=== PATIENT | female | born 1965 | race Caucasian/White ===

== ENCOUNTER 2019-09-27 21:18 | Emergency (ER) | payer MEDICAID ==
[~2019-09-27] VITALS: Ht 167.6 cm; Wt 77.3 kg
[~2019-09-27 21:18] MED LIST: CHLO25CA10 PO; METO25TA6 PO
[2019-09-27] MEDS ORDERED: normal saline 1000ML IV soln IVB ONE (22:35)
[2019-09-27 22:43] LABS: BASOPHILS % (AUTO) 1.3 % (0-1); EOSINOPHILS # (AUTO) 0.1 X10'3 (0-0.9); EOSINOPHILS % (AUTO) 2.2 % (0-6); HEMATOCRIT 38.2 % (35.0-45.0); HEMOGLOBIN 12.8 g/dl (12.0-16.0); LYMPHOCYTES # (AUTO) 1.8 X10'3 (1.1-4.8); LYMPHOCYTES % (AUTO) 46.9 % (21-51); MEAN CORPUSCULAR HEMOGLOBIN 35.2 PG (27.0-31.0); MEAN CORPUSCULAR HGB CONC 33.6 g/dL (33.0-36.5); MEAN CORPUSCULAR VOLUME 104.9 FL (78-98); MEAN PLATELET VOLUME 8.5 FL (7.4-10.4); MONOCYTES # (AUTO) 0.4 X10'3 (0-0.9); MONOCYTES % (AUTO) 11.9 % (2-12); NEUTROPHILS # (AUTO) 1.4 X10'3 (1.8-7.7); NEUTROPHILS % (AUTO) 37.7 % (42-75); PLATELET COUNT 292 X10'3 (140-440); RED BLOOD COUNT 3.64 X10'6 (4.20-5.60); RED CELL DISTRIBUTION WIDTH 13.7 % (11.5-14.5); WHITE BLOOD COUNT 3.8 X10'3 (4.5-11.0)
[2019-09-27 23:00] LABS: ALANINE AMINOTRANSFERASE 47 U/L (12-78); ALBUMIN 3.5 G/DL (3.4-5.0); ALBUMIN/GLOBULIN RATIO 1.1 (1.1-1.5); ALKALINE PHOSPHATASE 95 IU/L (46-116); ANION GAP 7 (8-16); ASPARTATE AMINO TRANSFERASE 111 U/L (10-37); BILIRUBIN,TOTAL 1.1 MG/DL (0.1-1.0); BLOOD UREA NITROGEN 14 MG/DL (7-18); BUN/CREATININE RATIO 13.9 (6.6-38.0); CALCIUM 8.7 MG/DL (8.5-10.1); CHLORIDE 106 MMOL/L (99-107); CREATININE 1.01 MG/DL (0.40-0.90); ETHANOL 0.253 GM/DL (0.0-0.010); GLUCOSE 95 MG/DL (70-104); LIPASE 326 U/L (73-393); POTASSIUM 4.3 MMOL/L (3.5-5.1); SODIUM 141 MMOL/L (135-145); TOTAL PROTEIN 6.6 G/DL (6.4-8.2); eGFR 57 ML/MIN
[2019-09-27] MEDS ORDERED: ESTR1TAB28 PO (23:10)
[2019-09-27] MEDS ORDERED: PANT40TA4 PO (23:10)
[2019-09-27] MEDS ORDERED: BUPR100T16 PO (23:10)
[2019-09-27] MEDS ORDERED: LOVA20TA2 PO (23:10)
[2019-09-27] MEDS ORDERED: GABA-532 PO (23:10)
[2019-09-27] MEDS ORDERED: LISI-600 PO (23:10)
[2019-09-27 23:18] LABS: URINE HCG NEGATIVE (NEG)
[2019-09-27 23:28] LABS: CLARITY,URINE CLEAR (Clear); COLOR,URINE YELLOW (Yellow); GLUCOSE, URINE NEGATIVE (Neg); KETONES,URINE NEGATIVE (Neg); LEUKOCYTE ESTERASE ,URINE NEGATIVE (Neg); NITRITES, URINE NEGATIVE (Neg); OCCULT BLOOD,URINE TRACE-INTACT (Neg); PROTEIN,URINE NEGATIVE (Neg); UROBILINOGEN,URINE 0.2 E.U/dL (0.2-1.0)
[2019-09-27 23:34] LABS: UA COLLECTION TYPE CLN CATCH MIDSTREAM
[2019-09-27 23:35] LABS: URINE AMPHETAMINE SCREEN NEGATIVE (Neg); URINE BARBITUATE SCREEN NEGATIVE (Neg); URINE BENZODIAZEPINES SCREEN NEGATIVE (Neg); URINE CANNABINOID SCREEN NEGATIVE (Neg); URINE COCAINE SCREEN NEGATIVE (Neg); URINE METHADONE SCREEN NEGATIVE (Neg); URINE OPIATE SCREEN NEGATIVE (Neg); URINE PHENCYCLIDINE SCREEN NEGATIVE (Neg)
[2019-09-27 23:37] LABS: BACTERIA,URINE 2+ /HPF (Neg); MUCUS STRANDS NONE SEEN /LPF (Neg); RBC,URINE 0-2 /HPF (0-2); SQUAMOUS EPITHELIAL CELL,UR MODERATE /LPF (FEW); WBC,URINE NONE SEEN /HPF (0-4)
[2019-09-28 00:06] VITALS: BP 128/49
--- NOTE | 2019-09-28 00:11 | NUR ---
Gait test performed with pt ambulating successfully without assistance and without signs of instability.
[2019-09-28 12:10] LABS: OCCULT BLOOD STOOL POSITIVE (Neg)
== END 2019-09-28 00:08 | disposition home or self-care (01) ==
LOC: ER 21:18
DX: K64.4 Residual hemorrhoidal skin tags (principal); F10.129 Alcohol abuse with intoxication, unspecified; R42 Dizziness and giddiness; I10 Essential (primary) hypertension; F41.9 Anxiety disorder, unspecified; F32.9 Major depressive disorder, single episode, unspecified; F12.90 Cannabis use, unspecified, uncomplicated; F15.90 Other stimulant use, unspecified, uncomplicated; Z90.710 Acquired absence of both cervix and uterus; Z98.890 Other specified postprocedural states; Z79.899 Other long term (current) drug therapy; Y90.9 Presence of alcohol in blood, level not specified
CPT/HCPCS: 36415; 74176; 80053; 80305; 80320; 81001; 81025; 82272; 83690; 85025; 86885; 86900; 86901; 96360; 99284; J7030

== ENCOUNTER 2020-04-11 08:20 | Emergency (ER) | payer MEDICAID ==
[~2020-04-11] VITALS: Ht 167.6 cm; Wt 74.5 kg
[~2020-04-11 08:20] MED LIST changes: +BUPR100T16 PO; -CHLO25CA10 PO; +ESTR1TAB28 PO; +GABA-532 PO; +LISI-600 PO; +LOVA20TA2 PO; -METO25TA6 PO; +PANT40TA54 PO
[2020-04-11] MEDS ORDERED: ondansetron/PF 4mg/2ml inj IV ONE (08:45)
[2020-04-11] MEDS ORDERED: normal saline 1000ML IV soln IVB ONE (08:45)
[2020-04-11] MEDS ORDERED: famotidine/PF 10 mg/ml inj IV ONE (08:50)
[2020-04-11] MEDS ORDERED: pantoprazole 40 MG vial IV ONE (08:50)
[2020-04-11 09:25] LABS: BASOPHILS # (AUTO) 0.1 X10'3 (0-0.2); BASOPHILS % (AUTO) 0.9 % (0-1); EOSINOPHILS # (AUTO) 0.2 X10'3 (0-0.9); EOSINOPHILS % (AUTO) 2.3 % (0-6); HEMATOCRIT 39.5 % (35.0-45.0); HEMOGLOBIN 13.2 g/dl (12.0-16.0); LYMPHOCYTES # (AUTO) 1.3 X10'3 (1.1-4.8); LYMPHOCYTES % (AUTO) 17.3 % (21-51); MEAN CORPUSCULAR HEMOGLOBIN 31.4 PG (27.0-31.0); MEAN CORPUSCULAR HGB CONC 33.4 g/dL (33.0-36.5); MEAN PLATELET VOLUME 10.4 FL (7.4-10.4); MONOCYTES # (AUTO) 0.6 X10'3 (0-0.9); MONOCYTES % (AUTO) 7.3 % (2-12); NEUTROPHILS # (AUTO) 5.5 X10'3 (1.8-7.7); NEUTROPHILS % (AUTO) 72.2 % (42-75); PLATELET COUNT 205 X10'3 (140-440); RED CELL DISTRIBUTION WIDTH 13.3 % (11.5-14.5); WHITE BLOOD COUNT 7.6 X10'3 (4.5-11.0)
[2020-04-11] MEDS ORDERED: morphine 4 MG/ML inj SYRINge IV ONE (09:25)
[2020-04-11 09:42] LABS: ALANINE AMINOTRANSFERASE 31 U/L (12-78); ALBUMIN 4.3 G/DL (3.4-5.0); ALBUMIN/GLOBULIN RATIO 1.5 (1.1-1.5); ALKALINE PHOSPHATASE 66 IU/L (46-116); ANION GAP 5 (8-16); ASPARTATE AMINO TRANSFERASE 28 U/L (10-37); BILIRUBIN,TOTAL 0.6 MG/DL (0.1-1.0); BLOOD UREA NITROGEN 27 MG/DL (7-18); CHLORIDE 104 MMOL/L (99-107); GLUCOSE 87 MG/DL (70-104); POTASSIUM 4.3 MMOL/L (3.5-5.1); SODIUM 138 MMOL/L (135-145); TOTAL CARBON DIOXIDE 29.2 MMOL/L (24-32); TOTAL PROTEIN 7.1 G/DL (6.4-8.2); eGFR 58 ML/MIN
[2020-04-11 09:46] LABS: LIPASE 195 U/L (73-393); TROPONIN I < 0.04 NG/ML (0.0-0.05)
[2020-04-11 09:55] VITALS: BP 123/84
[2020-04-11] MEDS ORDERED: ONDA8TAB6 PO (10:31)
[2020-04-11 10:44] LABS: CLARITY,URINE CLOUDY (Clear); COLOR,URINE YELLOW (Yellow); GLUCOSE, URINE NEGATIVE (Neg); KETONES,URINE NEGATIVE (Neg); LEUKOCYTE ESTERASE ,URINE TRACE (Neg); NITRITES, URINE NEGATIVE (Neg); OCCULT BLOOD,URINE NEGATIVE (Neg); PH,URINE 5.5 (4.8-8.0); PROTEIN,URINE NEGATIVE (Neg); UROBILINOGEN,URINE 0.2 E.U/dL (0.2-1.0)
[2020-04-11 10:46] LABS: UA COLLECTION TYPE CLN CATCH MIDSTREAM
[2020-04-11 10:53] LABS: SQUAMOUS EPITHELIAL CELL,UR MANY /LPF (FEW)
[2020-04-11 10:54] LABS: BACTERIA,URINE 4+ /HPF (Neg); RBC,URINE 0-2 /HPF (0-2)
== END 2020-04-11 10:40 | disposition home or self-care (01) ==
LOC: ER 08:20
DX: R10.33 Periumbilical pain (principal); R11.2 Nausea with vomiting, unspecified; I10 Essential (primary) hypertension; K21.9 Gastro-esophageal reflux disease without esophagitis; F41.9 Anxiety disorder, unspecified; F32.9 Major depressive disorder, single episode, unspecified; F12.90 Cannabis use, unspecified, uncomplicated; F15.90 Other stimulant use, unspecified, uncomplicated; Z86.2 Personal history of diseases of the blood and blood-forming organs and certain disorders involving the immune mechanism; Z90.710 Acquired absence of both cervix and uterus; Z98.890 Other specified postprocedural states; Z72.89 Other problems related to lifestyle; Z79.899 Other long term (current) drug therapy
CPT/HCPCS: 36415; 80053; 81001; 83690; 84484; 85025; 96361; 96374; 96375; 99284; C9113; J2270; J2405; J3490; J7030

== ENCOUNTER 2022-09-25 06:34 | Day surgery (SDC) | payer MEDICAID ==
[2022-09-21 10:59] LABS: BASOPHILS % (AUTO) 0.5 % (0-1); EOSINOPHILS % (AUTO) 0.7 % (0-6); LYMPHOCYTES # (AUTO) 1.2 X10'3 (1.1-4.8); LYMPHOCYTES % (AUTO) 22.1 % (21-51); MEAN CORPUSCULAR HEMOGLOBIN 32.8 PG (27.0-31.0); MEAN CORPUSCULAR HGB CONC 32.4 g/dL (33.0-36.5); MEAN CORPUSCULAR VOLUME 101.4 FL (78-98); MEAN PLATELET VOLUME 9.1 FL (7.4-10.4); MONOCYTES # (AUTO) 0.5 X10'3 (0-0.9); MONOCYTES % (AUTO) 8.8 % (2-12); NEUTROPHILS # (AUTO) 3.7 X10'3 (1.8-7.7); NEUTROPHILS % (AUTO) 67.9 % (42-75); PRE OP HEMATOCRIT 35.2 % (35.0-45.0); PRE OP HEMOGLOBIN 11.4 g/dL (12.0-16.0); PRE OP PLATELET COUNT 301 X10'3 (140-440); RED BLOOD COUNT 3.47 X10'6 (4.20-5.60); RED CELL DISTRIBUTION WIDTH 17.5 % (11.5-14.5)
[2022-09-21 11:03] LABS: CLARITY,URINE SLIGHTLY CLOUDY (Clear); COLOR,URINE YELLOW (Yellow); GLUCOSE, URINE NEGATIVE (Neg); KETONES,URINE NEGATIVE (Neg); LEUKOCYTE ESTERASE ,URINE NEGATIVE (Neg); NITRITES, URINE NEGATIVE (Neg); OCCULT BLOOD,URINE NEGATIVE (Neg); PH,URINE 5.5 (4.8-8.0); PROTEIN,URINE NEGATIVE (Neg); UROBILINOGEN,URINE 0.2 E.U/dL (0.2-1.0)
[2022-09-21 11:11] LABS: ALBUMIN 3.4 G/DL (3.4-5.0); ALBUMIN/GLOBULIN RATIO 1.1 (1.1-1.5); ALKALINE PHOSPHATASE 60 IU/L (46-116); BLOOD UREA NITROGEN 12 MG/DL (7-18); BUN/CREATININE RATIO 18.5 (6.6-38.0); CALCIUM 9.5 MG/DL (8.5-10.1); CHLORIDE 109 MMOL/L (99-107); CREATININE 0.65 MG/DL (0.40-0.90); PRE OP ALT 20 U/L (30-65); PRE OP ANION GAP 4 (8-16); PRE OP AST 40 U/L (10-37); PRE OP BILIRUB, TOTAL 0.7 MG/DL (0.0-1.0); PRE OP GLUCOSE 107 MG/DL (70-104); PRE OP POTASSIUM 3.8 MMOL/L (3.4-5.1); PRE OP SODIUM 142 MMOL/L (135-145); TOTAL CARBON DIOXIDE 28.6 MMOL/L (24-32); TOTAL PROTEIN 6.5 G/DL (6.4-8.2); eGFR > 90 ML/MIN
[2022-09-21 11:39] LABS: UA COLLECTION TYPE CLN CATCH MIDSTREAM
[2022-09-21 11:48] LABS: SQUAMOUS EPITHELIAL CELL,UR FEW /LPF (FEW)
[2022-09-21 11:50] LABS: BACTERIA,URINE NONE SEEN /HPF (Neg); RBC,URINE 0-2 /HPF (0-2); WBC,URINE 0-4 /HPF (0-4)
[2022-09-21 11:51] LABS: AMORPHOUS URATES 4+; CAL OXALATE CRYSTALS FEW /HPF (NEGATIVE)
[2022-09-25] VITALS (11 sets, daily range): BP systolic 119–165; BP diastolic 76–107
[~2022-09-25] VITALS: Ht 167.6 cm; Wt 63.2 kg
[~2022-09-25 06:34] MED LIST changes: +BUPR-122 PO; -BUPR100T16 PO; +CARV3.12 PO; -ESTR1TAB28 PO; +FERR-39 PO; +FOLI1TAB27 PO; -LISI-600 PO; -LOVA20TA2 PO; +albuterol 2.5 MG/3 ML nebule NEB ONE; +cefazolin 2gm/D5W 100mL 100 ML IV ONE; +famotidine 20mg tablet PO ONE; +ringers solution, lacted 1,000 ML IV SCH
[2022-09-25] MEDS ORDERED: INDOCYANINE GREEN 25 MG/10 ML VIAL IV ONE (07:45)
[2022-09-25] MEDS ORDERED: BUPIVAcaine 0.5% inj/PF 30 ML ONE ×2 (08:05→08:08)
[2022-09-25] MEDS ORDERED: LIDOcaine 1% 30ml preserv. free vial ONE (08:05)
[2022-09-25] MEDS ORDERED: BUPIVACAINE liposomal/PF 13.3 MG/ML vial IM ONE (08:08)
[2022-09-25] MEDS ORDERED: ondansetron/PF 4mg/2ml inj IV PRN (08:35)
[2022-09-25] MEDS ORDERED: morphine 4 MG/ML inj SYRINge IV PRN (08:35)
[2022-09-25] MEDS ORDERED: morphine 2 MG/ML inj. syringe IV PRN (08:35)
[2022-09-25] MEDS ORDERED: meperidine/PF 25mg/ml syringe IV PRN ×3 (08:35)
[2022-09-25] MEDS ORDERED: proCHLORperazine 10 MG/2 ml inj IV PRN (08:35)
[2022-09-25] MEDS ORDERED: ringers solution, lacted 1,000 ML IV SCH (08:35)
[2022-09-25] MEDS ORDERED: sevoflurane 250ml liquid IH ONE (08:37)
[2022-09-25] MEDS ORDERED: midazolam 1 mg/ML 2ml injection ONE (08:45)
[2022-09-25] MEDS ORDERED: fentaNYL /PF 50mcg/ml 5ml ampule ONE (08:45)
[2022-09-25] MEDS ORDERED: propofol inj 20 ML IV ONE (08:58)
[2022-09-25] MEDS ORDERED: rocuronium 10mg/ml inj IV ONE (08:58)
[2022-09-25] MEDS ORDERED: dexamethasone sod phosphate 4mg/ml inj. ONE (08:58)
[2022-09-25] MEDS ORDERED: LIDOcaine 2% (20mg/ml) 5ml vial ONE (08:58)
[2022-09-25] MEDS ORDERED: BUPIVAcaine 0.5% inj/PF 30 ml vial IJ ONE (09:14)
[2022-09-25] MEDS ORDERED: ondansetron/PF 4mg/2ml inj ONE (10:05)
[2022-09-25] MEDS ORDERED: acetaminophen 1,000mg/100ml IV 100 ML IV ONE (10:16)
--- NOTE | 2022-09-25 10:30 | NUR ---
Received from OR via [facility], accompanied by Anesthesiologist and report given by Anesthesiolgist LOPEZ. PT DROWSY, WITH ORAL AIRWAY IN, AIRWAY PATENT, MASK O2 WITH SPO2 100%. ABD INCISIONS COVERED BY BAND AIDES, DRY AND INTACT. NO SIGNS OF DISCOMFORT OR PAIN, PT BREATHING NORMALLY. Addendum: 09/25/22 at 1132 by Jad Hall RN Amended: Links added.
[2022-09-25] MEDS ORDERED: labetalol 20mg/4ml (5mg/ml) syringe IV PRN (10:35)
[2022-09-25] MEDS ORDERED: enalaprilat dihydrate 2.5mg/2ml vial IV PRN (10:35)
[2022-09-25] MEDS ORDERED: oxyCODONE/APAP 5-325mg tablet PO PRN (10:35)
--- NOTE | 2022-09-25 12:00 | NUR ---
PT DISCHARGED INTO SON'S CARE WITHOUT INCIDENT. PT REPORTS NO PAIN. AMBULATING INDEPENDENTLY WITH STEADY NARROW GAIT WITH USE OF SPC. PT TOLERATING FOOD. DC PAPERWORK PROVIDED WRITTEN AND VERBAL, PT VERBALIZED UNDERSTANDING. VERBALIZED UNDERSTANDING OF RX AND DRIVING/OPERATION RESTRICTIONS WHILE ON PERCOCET. Addendum: 09/25/22 at 1233 by Jad Hall RN Amended: Links added.
== END 2022-09-25 12:00 | disposition home or self-care (01) ==
LOC: PAS 06:34
PROVIDERS: ATTEND Surgery
DX: K80.10 Calculus of gallbladder with chronic cholecystitis without obstruction (principal); K43.2 Incisional hernia without obstruction or gangrene; F41.9 Anxiety disorder, unspecified; F32.9 Major depressive disorder, single episode, unspecified; I10 Essential (primary) hypertension; E78.5 Hyperlipidemia, unspecified; K21.9 Gastro-esophageal reflux disease without esophagitis; J44.9 Chronic obstructive pulmonary disease, unspecified; F17.210 Nicotine dependence, cigarettes, uncomplicated; F11.91 Opioid use, unspecified, in remission; Z72.89 Other problems related to lifestyle; Z90.710 Acquired absence of both cervix and uterus; Z98.890 Other specified postprocedural states; Z79.899 Other long term (current) drug therapy
CPT/HCPCS: 36415; 47563; 49593; 80053; 81001; 82948; 85025; 93005; C9290; J0131; J0690; J1100; J2250; J2405; J2704; J3010; J3490; J7030; J7120; S0020; S2900; Z7506; Z7508; Z7512; A4215; A4618; A7000

== ENCOUNTER 2023-11-08 17:34 | Emergency (ER) | payer SELFPAY ==
[~2023-11-08 17:34] MED LIST changes: -albuterol 2.5 MG/3 ML nebule NEB ONE; -cefazolin 2gm/D5W 100mL 100 ML IV ONE; -famotidine 20mg tablet PO ONE; -ringers solution, lacted 1,000 ML IV SCH
[2023-11-08 19:09] LABS: BASOPHILS % (AUTO) 0.5 % (0-1); EOSINOPHILS % (AUTO) 0.1 % (0-6); HEMATOCRIT 35.5 % (35.0-45.0); HEMOGLOBIN 11.5 g/dl (12.0-16.0); LYMPHOCYTES # (AUTO) 1.3 X10'3 (1.1-4.8); LYMPHOCYTES % (AUTO) 25.8 % (21-51); MEAN CORPUSCULAR HEMOGLOBIN 32.4 PG (27.0-31.0); MEAN CORPUSCULAR HGB CONC 32.5 g/dL (33.0-36.5); MEAN CORPUSCULAR VOLUME 99.7 FL (78-98); MEAN PLATELET VOLUME 9.3 FL (7.4-10.4); MONOCYTES # (AUTO) 0.5 X10'3 (0-0.9); MONOCYTES % (AUTO) 10.3 % (2-12); NEUTROPHILS # (AUTO) 3.1 X10'3 (1.8-7.7); NEUTROPHILS % (AUTO) 63.3 % (42-75); PLATELET COUNT 234 X10'3 (140-440); RED BLOOD COUNT 3.56 X10'6 (4.20-5.60); RED CELL DISTRIBUTION WIDTH 16.6 % (11.5-14.5)
[2023-11-08 19:24] LABS: ALBUMIN 3.8 G/DL (3.4-5.0); ANION GAP 10 (8-16); BLOOD UREA NITROGEN 10 MG/DL (7-18); BUN/CREATININE RATIO 9.7 (10.0-20.0); CALCIUM 10.4 MG/DL (8.5-10.1); CHLORIDE 94 MMOL/L (99-107); CREATININE 1.03 MG/DL (0.40-0.90); GLUCOSE 109 MG/DL (70-104); POTASSIUM 3.3 MMOL/L (3.5-5.1); PRO BRAIN NATRIURETIC PEPTIDE 1155 PG/ML (0-125); SODIUM 132 MMOL/L (135-145); TOTAL CARBON DIOXIDE 28.1 MMOL/L (24-32); eGFR 55 ML/MIN
== END 2023-11-08 19:15 | disposition left against medical advice (07) ==
LOC: ER 17:34
DX: R07.89 Other chest pain (principal); Z53.21 Procedure and treatment not carried out due to patient leaving prior to being seen by health care provider
CPT/HCPCS: 36415; 80048; 83880; 84484; 85025; 93005

== ENCOUNTER → 2024-01-09 | Outpatient (CLI) | payer MEDICAID ==
[~2024-01-09] VITALS: Ht 167.6 cm; Wt 79.4 kg
[2024-01-09] MEDS: albuterol 2.5 MG/3 ML nebule NEB ONE (11:18)
[2024-01-09 11:20] VITALS: PULSE 76; RESP 16; O2SAT 98
== END | disposition home or self-care (01) ==
LOC: RT 10:39
PROVIDERS: ATTEND Physician Assistant
DX: R06.02 Shortness of breath (principal)
CPT/HCPCS: 94060; 94727; 94729; 94760

== ENCOUNTER 2024-02-05 10:50 | Emergency (ER) | payer MEDICAID ==
[~2024-02-05] VITALS: Ht 167.6 cm; Wt 75.2 kg
[2024-02-05 12:00] VITALS: BP 134/88; PULSE 68; RESP 16; TEMP 98.2; O2SAT 98
== END 2024-02-05 12:02 | disposition home or self-care (01) ==
LOC: ER 10:50
DX: G56.01 Carpal tunnel syndrome, right upper limb (principal); I10 Essential (primary) hypertension; K21.9 Gastro-esophageal reflux disease without esophagitis; D64.9 Anemia, unspecified; F41.9 Anxiety disorder, unspecified; F32.A Depression, unspecified; F12.90 Cannabis use, unspecified, uncomplicated; F15.90 Other stimulant use, unspecified, uncomplicated; Z98.890 Other specified postprocedural states; Z90.710 Acquired absence of both cervix and uterus; Z79.899 Other long term (current) drug therapy
CPT/HCPCS: 99281